=== PATIENT | female | born 2005 | race Caucasian/White ===

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

== ENCOUNTER → 2024-02-15 10:17 | Outpatient (REF) | payer BC, SELFPAY | LOC: HWRAD 10:17 | PROVIDERS: ATTENDING PHYSICIAN Student in an Organized Health Care Education/Training Program; FAMILY PHYSICIAN Pediatrics | DX: N91.2 Amenorrhea, unspecified (principal) | CPT/HCPCS: 76856 ==